=== PATIENT | male | born 1945 | race Caucasian/White ===

== ENCOUNTER 2017-12-06 12:31 | Inpatient (IN) | payer OTHER ==
[~2017-12-06] VITALS: Ht 182.9 cm; Wt 172.4 kg
[~2017-12-06 12:31] MED LIST: AMLODIPINE BESY10 MG PO; ASA5UEC PO; CARVEDILOL25 MG PO; CITALOPRAM; DEMADEX20 MG PO; EDARBYCLOR 40-1 EAC1 PO; FUROSEMIDE 40 M40 M1 PO; GLUCOPHAGE850 MG PO; HYDROCODONE-AP1 EAC6 PO; LASIX 80 MG TAB80 MG PO; LOPRESSOR100 MG PO; LOTENSIN; LOTENSIN40 MG PO; METFORMIN HCL500 MG PO; NORVASC10 MG PO; NOVOLIN 70100 UNIT/5 SUBQ; POTASSIUM PO; VERAPAMIL ER120 MG PO; ZANTAC 150MG T150 M1 PO; ZOCOR; ZOCOR40 MG PO
[2017-12-06 12:50] VITALS: BP 184/80
[2017-12-06] MEDS ORDERED: LEXAPRO 10 MG T10 M1 PO (13:01)
[2017-12-06 14:55] VITALS: BP 150/64
[2017-12-06 15:09] LABS: ABSOLUTE NEUTROPHILS 8.5 thou/uL (1.4-8.2); BASOPHILS 1.3 % (0.0-2.0); EOSINOPHILS 3.4 % (0.0-3.0); HEMATOCRIT 36.4 % (42.0-52.0); HEMOGLOBIN 12.1 gm/dL (14.0-18.0); LYMPHOCYTES 21.1 % (24.0-44.0); MCH 26.7 pg (26.0-34.0); MCHC 33.4 g/dL (28.0-37.0); MONOCYTES 7.5 % (1.0-8.0); PLATELET COUNT 290 thou/uL (150-400); POLYS 66.7 % (36.0-66.0); RBC 4.55 mil/uL (4.50-6.00); RDW 16.9 % (10.5-14.5); WBC 12.7 thou/uL (4.0-11.0)
[2017-12-06 15:15] VITALS: BP 141/64
[2017-12-06 15:15] LABS: CALCIUM 9.1 mg/dL (8.5-10.1); CREATININE 1.7 mg/dL (0.7-1.3); POTASSIUM 4.2 mmol/L (3.5-5.1)
[2017-12-06 16:00] VITALS: BP 174/83
[2017-12-06 17:52] VITALS: BP 174/83
[2017-12-06] MEDS ORDERED: ALEVE220 MG PO (18:48)
[2017-12-06 20:46] VITALS: BP 135/73
[2017-12-07 05:08] VITALS: BP 137/64
[2017-12-07 07:25] VITALS: BP 153/70
== END 2017-12-07 14:16 | disposition short-term general hospital (02) | DRG 563 ==
LOC: ER 12:31 → EROBS 14:35 → 4E 16:03
PROVIDERS: Physician Assistant
DX: S83.012A Lateral subluxation of left patella, initial encounter (principal); I25.2 Old myocardial infarction; E11.40 Type 2 diabetes mellitus with diabetic neuropathy, unspecified; S80.212A Abrasion, left knee, initial encounter; I10 Essential (primary) hypertension; G89.29 Other chronic pain; E78.00 Pure hypercholesterolemia, unspecified; M25.562 Pain in left knee; Z96.652 Presence of left artificial knee joint; Z96.1 Presence of intraocular lens; W01.0XXA Fall on same level from slipping, tripping and stumbling without subsequent striking against object, initial encounter; Z90.49 Acquired absence of other specified parts of digestive tract; Z98.42 Cataract extraction status, left eye; Z85.828 Personal history of other malignant neoplasm of skin; Z98.41 Cataract extraction status, right eye; Z85.038 Personal history of other malignant neoplasm of large intestine; Z79.2 Long term (current) use of antibiotics; Z79.82 Long term (current) use of aspirin; Z79.899 Other long term (current) drug therapy; Z88.8 Allergy status to other drugs, medicaments and biological substances; Y93.89 Activity, other specified; Y92.091 Bathroom in other non-institutional residence as the place of occurrence of the external cause; Y99.8 Other external cause status
CPT/HCPCS: 10084